=== PATIENT | female | born 1965 | race Caucasian/White ===

== ENCOUNTER 2020-12-08 13:52 | Emergency (ER) | payer OTHER, SELFPAY ==
[2020-12-08] MEDS ORDERED: Ketorolac Tromethamine 30 MG/ML VIAL ONE (15:54)
== END 2020-12-08 16:10 | disposition home or self-care (01) ==
LOC: ERS 13:52
DX: S20.213A Contusion of bilateral front wall of thorax, initial encounter (principal); F17.210 Nicotine dependence, cigarettes, uncomplicated; I10 Essential (primary) hypertension; V29.9XXA Motorcycle rider (driver) (passenger) injured in unspecified traffic accident, initial encounter
CPT/HCPCS: 71045; 96372; J1885

== ENCOUNTER 2021-09-10 08:52 | Outpatient (CLI) | payer OTHER | END 2021-09-10 08:53 | disposition home or self-care (01) | LOC: BICRAD 08:52 | PROVIDERS: ATTEND Neurological Surgery | DX: M54.16 Radiculopathy, lumbar region (principal); M47.22 Other spondylosis with radiculopathy, cervical region; Z98.1 Arthrodesis status | CPT/HCPCS: 72050; 72110 ==

== ENCOUNTER 2021-09-26 02:15 | Emergency (ER) | payer SELFPAY ==
[2021-09-26] MEDS ORDERED: Ketorolac Tromethamine 30 MG/ML VIAL ONE (02:19)
[2021-09-26] MEDS ORDERED: Morphine 4 MG/ML VIAL ONE (02:19)
[2021-09-26] MEDS ORDERED: Ondansetron PF 4 MG/2 ML Vial ONE (02:19)
[2021-09-26 02:52] LABS: #Basophils 0.1 thou/uL (0.0-0.2); #Eosinphils 0.1 thou/uL (0.0-0.7); #Lymphocytes 1.7 thou/uL (1.20-3.40); #Monocytes 0.7 thou/uL (0.11-0.59); #Neutrophils 13.1 thou/uL (1.40-6.50); %Basophils 0.3 % (0.0-1.0); %Eosinophils 0.5 % (0.0-10.0); %Lymphocytes 10.8 % (21.0-51.0); %Monocytes 4.7 % (0.0-10.0); %Neutrophils 83.7 % (42.0-75.0); Mean Corpuscular HGB CONC 33.9 g/dL (32.0-36.0); Mean Corpuscular Hemoglobin 31.5 pg (27.0-31.0); Mean Corpuscular Volume 93.1 fL (78.0-98.0); Mean Platelet Volume 6.8 fL (7.4-10.4); Platelet Count 420 thou/uL (130-400); RBC Distribution Width 11.5 % (11.5-14.5); Red Blood Cell (RBC) Count 5.08 mill/uL (4.20-5.40); White Blood Cell (WBC) Count 15.7 thou/uL (4.8-10.8)
[2021-09-26 03:12] LABS: ALT (SGPT) 14 U/L (8-55); AST (SGOT) 15 U/L (5-34); Albumin 4.6 g/dL (3.5-5.0); Alkaline Phosphatase 86 U/L (40-110); Anion Gap 8 mmol/L (10-20); BUN (Urea Nitrogen) 14 mg/dL (9.8-20.1); Bilirubin, Total 0.8 mg/dL (0.2-1.2); Calc. Creatinine Clearance 0 mL/min (70-130); Calcium 9.8 mg/dL (7.8-10.44); Carbon Dioxide 33 mmol/L (22-29); Chloride 102 mmol/L (98-107); Globulin 2.9 g/dL (2.4-3.5); Glucose 126 mg/dL (70-105); Potassium 3.2 mmol/L (3.5-5.1); Protein, Total 7.5 g/dL (6.0-8.3); Sodium 140 mmol/L (136-145)
[2021-09-26 06:20] LABS: Bilirubin Negative (Negative); Blood, Urine 3+ (Negative); Clarity Turbid (Clear); Glucose, Urine (Dipstick) Normal (Negative); Ketone, Urine Negative (Negative); Leukocyte Negative Leu/uL (Negative); Mucous/LPF 1+ LPF (<2+); Nitrite Negative (Negative); Protein, Urine (Dipstick) 50 mg/dL (Neg-Trace); RBC/HPF Greater than 50 HPF (0-3); Specific Gravity, Urine 1.028 (1.002-1.036); Urobilinogen Normal mg/dL (Less than 2); WBC/HPF 21-50 HPF (0-3)
[2021-09-26 06:23] LABS: Bacteria/HPF None Seen HPF (None Seen)
== END 2021-09-26 06:24 | disposition home or self-care (01) ==
LOC: ERS 02:15
DX: N13.2 Hydronephrosis with renal and ureteral calculous obstruction (principal); I10 Essential (primary) hypertension; F17.210 Nicotine dependence, cigarettes, uncomplicated
CPT/HCPCS: 74176; 80053; 81003; 81015; 85025; 93005; 96374; 96375; J1885; J2270; J2405

== ENCOUNTER 2022-01-19 09:45 | Outpatient (CLI) | payer OTHER | END 2022-01-19 09:46 | disposition home or self-care (01) | LOC: BICMRI 09:45 | PROVIDERS: ATTEND Neurological Surgery | DX: M54.12 Radiculopathy, cervical region (principal); M48.02 Spinal stenosis, cervical region | CPT/HCPCS: 72141 ==

== ENCOUNTER 2022-10-19 22:39 | Emergency (ER) | payer OTHER | END 2022-10-20 02:57 | disposition home or self-care (01) | LOC: ERS 22:39 | DX: S00.83XA Contusion of other part of head, initial encounter (principal); I10 Essential (primary) hypertension; F17.210 Nicotine dependence, cigarettes, uncomplicated; W10.1XXA Fall (on)(from) sidewalk curb, initial encounter | CPT/HCPCS: 70450; 70486; 72125 ==